=== PATIENT | female | born 1980 | race Caucasian/White ===

== ENCOUNTER 2021-02-06 09:19 | Emergency (ER) | payer OTHER ==
[~2021-02-06] VITALS: Ht 162.6 cm; Wt 99.8 kg
[2021-02-06 09:29] VITALS: BP 154/96
--- NOTE | 2021-02-06 09:33 | NUR ---
PT IN LOBBY
--- NOTE | 2021-02-06 09:35 | NUR ---
PT AMBULATED TO BED 7
--- NOTE | 2021-02-06 10:00 | NUR ---
ERMD at bedside.
--- NOTE | 2021-02-06 10:00 | NUR ---
40 Y FEMALE WITH C/O OF MELTON X4 DAYS THAT RADIATES TO HER NECK/SHOULDERS. PT STATED "SHE WOKE UP WITH A HEADACHE WITH LITTLE TO NO RELIEF." PT STATED SHE HAS NOW STARTED TO EXPERIENCE NOSE BLEEDS AND AN EAR ACHE THAT STARTED YESTERDAY. PT DOES HAVE A HX OF CHRONIC HEADACHES. PT TOOK TYLENOL AT HOME, WHICH DID NOT PROVIDE RELIEF. PT STAETS 7/10 PRESSURE PAIN RADIATING TO LT EAR WITH BLURRY VISION. DENIES ANY DISCHARGE OR RECENT FEVER. PMH: MIGRANES NKA
[2021-02-06] MEDS ORDERED: PROCHLORPERAZINE 5 MG TAB PO ONE (10:05)
[2021-02-06] MEDS ORDERED: KETOROLAC 30 MG/ML VIAL IM ONE (10:05)
[2021-02-06] MEDS ORDERED: ACETAMINOPHEN 650 MG/20.3 ML UDC PO ONE (10:05)
[2021-02-06] MEDS ORDERED: IBUP-2213 PO (11:35)
== END 2021-02-06 11:40 | disposition home or self-care (01) ==
LOC: MED 09:19
DX: R51.9 Headache, unspecified (principal); G43.909 Migraine, unspecified, not intractable, without status migrainosus
CPT/HCPCS: 81002; 81025; 96372; 99283; J1885; Q0164